=== PATIENT | male | born 1970 | race Caucasian/White ===

== ENCOUNTER 2020-04-18 07:13 | Emergency (ER) | payer OTHER ==
[~2020-04-18] VITALS: Ht 167.6 cm; Wt 68.0 kg
[2020-04-18 07:17] VITALS: Ht 167.6 cm; Wt 68.0 kg
[2020-04-18 07:56] LABS: CALCIUM 8.7 mg/dL (8.5-10.1); CARBON DIOXIDE 27.3 mmol/L (21-32); CHLORIDE SERUM 104 mmol/L (98-107); CREATININE SERUM 1.3 mg/dL (0.7-1.3); GFR1 > 60 mL/min; GLUCOSE SERUM 167 mg/dL (74-106); POTASSIUM SERUM 3.4 mmol/L (3.5-5.1); SODIUM SERUM 140 mmol/L (136-145)
[2020-04-18 08:01] LABS: ALKALINE PHOSPHATASE 50 U/L (46-116); ALT/SGPT 36 U/L (16-63); AST/SGOT 15 U/L (15-37); BILIRUBIN TOTAL 0.41 mg/dL (0.20-1.00); LIPASE 218 IU/L (73-393)
[2020-04-18 08:18] LABS: BASOPHIL % 0.5 % (0-2); PLATELET COUNT 236 x10^3mcL (130-400); RED CELL DISTRIBUTION WIDTH 13.2 % (11.5-14.5)
[2020-04-18 09:56] LABS: microscopic required? NO
[2020-04-18 11:08] LABS: UA SPECIFIC GRAVITY >=1.030 (1.005-1.035); urine erythrocyte NEGATIVE (NEGATIVE)
[2020-04-18 11:56] VITALS: BP 124/65
== END 2020-04-18 11:56 | disposition home or self-care (01) ==
LOC: ED 07:13
PROVIDERS: Emergency Medicine
DX: N23 Unspecified renal colic (principal); N20.0 Calculus of kidney; Z88.0 Allergy status to penicillin; Z90.89 Acquired absence of other organs
CPT/HCPCS: J1885; J3010